=== PATIENT | female | born 1995 | race Hispanic/Latino ===

== ENCOUNTER 2017-03-09 13:19 | Emergency (ER) | payer OTHER, SELFPAY ==
[2017-03-09] MEDS ORDERED: methylPREDNISolone Sod Succ/PF 125 MG/2 ML VIAL ONE (13:57)
[2017-03-09] MEDS ORDERED: predniSONE 10 MG TAB ONE (14:06)
[2017-03-09] MEDS ORDERED: predniSONE 20 MG TAB ONE (14:06)
== END 2017-03-09 14:15 | disposition home or self-care (01) ==
LOC: NAV ERS 13:19
DX: T78.40XA Allergy, unspecified, initial encounter (principal)
CPT/HCPCS: 99282; J2930; J7506; J7512

== ENCOUNTER 2017-07-09 12:49 | Emergency (ER) | payer MEDICAID, OTHER, SELFPAY | END 2017-07-09 13:28 | disposition home or self-care (01) | LOC: NAV ERS 12:49 | DX: O20.0 Threatened abortion (principal); Z3A.01 Less than 8 weeks gestation of pregnancy | CPT/HCPCS: 99283 ==

== ENCOUNTER 2021-06-09 13:07 | Emergency (ER) | payer BC, OTHER ==
[2021-06-10 15:08] LABS: SARS-CoV-2 PCR by NAA Not Detected (NotDetected)
== END 2021-06-09 14:20 | disposition home or self-care (01) ==
LOC: NAV ERS 13:07
DX: O99.353 Diseases of the nervous system complicating pregnancy, third trimester (principal); R51.9 Headache, unspecified; Z20.822 Contact with and (suspected) exposure to COVID-19; Z3A.33 33 weeks gestation of pregnancy
CPT/HCPCS: 99284; U0003; U0005